=== PATIENT | female | born 1980 | race African-American/Black ===

== ENCOUNTER 2022-06-27 11:04 | Emergency (ER) | payer BC ==
[2022-06-27 12:15] LABS: Absolute Lymphocytes (CBC) 1.3 K/uL (0.7-4.9); Lymphocytes % 25.9 % (15.3-44.8); MCV 84.6 fL (80-100); MPV 8.4 fL (7.6-11.3); RBC Red Blood Cell Count 4.01 M/uL (3.86-4.86)
[2022-06-27 12:28] LABS: Potassium 3.5 mmol/L (3.5-5.1); Troponin High Sensitivity 3.6 pg/mL (<58.9)
--- NOTE | 2022-06-27 12:46 | RAD REPORT ---
EXAM DESCRIPTION: RAD - Chest Single View - 06/27/2022 12:31 pm CLINICAL HISTORY: CHEST PAIN Chest pain. COMPARISON: No comparisons FINDINGS: Portable technique limits examination quality. The lungs are grossly clear. The heart is normal in size. No displaced fractures. IMPRESSION: No acute intrathoracic process suspected.
--- NOTE | 2022-06-27 13:34 | EDPHYS ---
Physician Documentation [facility] Name: Barrett Alexandre Age: 41 yrs Sex: Female : 1980 Arrival Date: 06/27/2022 Time: 11:06 Bed 13 Private MD: ED Physician Sebastien Kauffman HPI: 06/27 19:52 This 41 yrs old Black Female presents to ER via EMS with complaints of chest pain. ms3 19:52 41-year-old female presents via EMS for substernal chest pain that has been ongoing for ms3 1 year. EMS states patient's blood pressure was 122/70 after administering aspirin and nitroglycerin. Patient states her pain is a 5/10 described as squeezing. Patient denies nausea, vomiting, fevers, chills. Patient denies alleviating or inciting factors.. 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 - Social history:: Smoking status: unknown. ROS: 19:52 Constitutional: Negative for fever, and chills. Neck: Negative for injury, pain, and ms3 swelling. 19:52 Respiratory: Negative for shortness of breath, cough, wheezing, and pleuritic chest pain, Abdomen/GI: Negative for abdominal pain, nausea, vomiting, diarrhea, and constipation, MS/Extremity: Negative for injury and deformity, Skin: Negative for injury, rash, and discoloration. 19:52 Cardiovascular: Positive for chest pain. 19:52 All other systems are negative. Exam: 19:52 Constitutional: This is a well developed, well nourished patient who is awake, alert, ms3 and in no acute distress. Head/Face: Normocephalic, atraumatic. Neck: Trachea midline, no cervical lymphadenopathy. Supple, full range of motion without nuchal rigidity, or vertebral point tenderness. No Meningismus. Chest/axilla: Normal chest wall appearance and motion. Nontender with no deformity. Cardiovascular: Regular rate and rhythm with a normal S1 and S2. No gallops, murmurs, or rubs. Normal PMI, no JVD. No pulse deficits. Respiratory: Lungs have equal breath sounds bilaterally, clear to auscultation and percussion. No rales, rhonchi or wheezes noted. No increased work of breathing, no retractions or nasal flaring. Abdomen/GI: Soft, non-tender, with normal bowel sounds. No distension or tympany. No guarding or rebound. No evidence of tenderness throughout. Back: No spinal tenderness. No costovertebral tenderness. Full range of motion. Skin: Warm, dry with normal turgor. Normal color with no rashes, no lesions, and no evidence of cellulitis. MS/ Extremity: Pulses equal, no cyanosis. Neurovascular intact. Full, normal range of motion. Neuro: Awake and alert, GCS 15, oriented to person, place, time, and situation. Cranial nerves II-XII grossly intact. Motor strength 5/5 in all extremities. Sensory grossly intact. Cerebellar exam normal. Normal gait. Psych: Awake, alert, with orientation to person, place and time. Behavior, mood, and affect are within normal limits. Vital Signs: 11:18 BP 124 / 82; Pulse 70; Resp 16 S; Temp 99.1(O); Pulse Ox 100% on R/A; Weight 95.71 kg jd3 (R); Height 5 ft. 4 in. (162.56 cm) (R); Pain 1/10; 12:57 BP 121 / 73; Pulse 65; Resp 15; Pulse Ox 100% on R/A; jd3 13:46 BP 108 / 72; Pulse 63; Resp 16; Pulse Ox 100% on R/A; jd3 11:18 Body Mass Index 36.22 (95.71 kg, 162.56 cm) jd3 MDM: 11:08 Patient medically screened. ms3 13:35 Differential diagnosis: abnormal EKG, acute myocardial infarction, acute pericarditis, ms3 coronary artery disease chest wall pain. HEART Score: History: Slightly Suspicious (0), ECG: Normal (0), Age: < or = 45 years (0), Risk Factors: 1 or 2 risk factors (1), Troponin: < or = 1 x Normal Limit (0), Total Score = 1. The patient was not given aspirin in the Emergency Department. Administered by EMS. Data reviewed: vital signs, nurses notes, lab test result(s), EKG, radiologic studies, and as a result, I will discharge patient. Counseling: I had a detailed discussion with the patient and/or guardian regarding: the historical points, exam findings, and any diagnostic results supporting the discharge/admit diagnosis, lab results, radiology results, the need for outpatient follow up, to return to the emergency department if symptoms worsen or persist or if there are any questions or concerns that arise at home. Special discussion: Based on the patient's history, exam, and Dx evaluation, there is no indication for emergent intervention or inpatient Tx. It is understood by the patient/guardian that if the Sx's persist or worsen they need to return immediately for re-evaluation. ED course: On reevaluation patient is alert and oriented x4, in no apparent distress, nontoxic, speaking full sentences, pain improved. Discussed labs, chest x-ray, EKG with patient. Patient to follow-up with [facility] cardiology within 48 hours. Patient understands and agrees with plan. All questions were answered. Return precautions discussed include worsening symptoms, or any other concerns.. 06/27 11:44 Order name: Basic Metabolic Panel; Complete Time: 12:33 ms3 06/27 11:44 Order name: CBC with Diff; Complete Time: 12:33 ms3 06/27 11:44 Order name: Troponin HS; Complete Time: 12:33 ms3 06/27 11:44 Order name: XRAY Chest (1 view); Complete Time: 12:53 ms3 06/27 11:44 Order name: EKG; Complete Time: 11:45 ms3 06/27 11:44 Order name: Cardiac monitoring; Complete Time: 11:50 ms3 06/27 11:44 Order name: EKG - Nurse/Tech; Complete Time: 11:50 ms3 06/27 11:44 Order name: IV Saline Lock; Complete Time: 11:50 ms3 06/27 11:44 Order name: Labs collected and sent; Complete Time: 11:50 ms3 06/27 11:44 Order name: O2 Per Protocol; Complete Time: 11:50 ms3 06/27 11:44 Order name: O2 Sat Monitoring; Complete Time: 11:50 ms3 Administered Medications: No medications were administered Disposition Summary: 08/31/22 13:34 Discharge Ordered Location: Home ms3 Condition: Stable ms3 Diagnosis - Chest pain, unspecified ms3 - Essential (primary) hypertension ms3 Followup: ms3 - With: Private Physician - When: 48 Hours - Reason: Re-evaluation by your physician Discharge Instructions: - Discharge Summary Sheet ms3 - Nonspecific Chest Pain, Adult ms3 Forms: - Medication Reconciliation Form ms3 - Thank You Letter ms3 - Antibiotic Education ms3 - Prescription Opioid Use ms3 Prescriptions: - Pepcid 20 mg Oral Tablet - take 1 tablet by ORAL route every 12 hours for 5 days; 10 tablet; Refills: 0, ms3 Product Selection Permitted Signatures: Dispatcher [employer] Dhaval Reaves RN RN jd3 Sebastien Kauffman DO DO ms3
--- NOTE | 2022-06-27 13:34 | ER ---
Nurse's Notes [facility] Name: Barrett Alexandre Age: 41 yrs Sex: Female : 1980 Arrival Date: 06/27/2022 Time: 11:06 Bed 13 Private MD: Diagnosis: Chest pain, unspecified;Essential (primary) hypertension Presentation: 06/27 11:06 Chief complaint: EMS states: "pt is reporting episodic chest pain that has been going jd3 on for about 1 year. she reports she has these episodes about once a week. today the pain radiates to the jaw.". Coronavirus screen: At this time, the client does not indicate any symptoms associated with coronavirus-19. Ebola Screen: No symptoms or risks identified at this time. Initial Sepsis Screen: Does the patient meet any 2 criteria? No. Patient's initial sepsis screen is negative. Does the patient have a suspected source of infection? No. Patient's initial sepsis screen is negative. Risk Assessment: Do you want to hurt yourself or someone else? Patient reports no desire to harm self or others. Onset of symptoms was June 27, 2022. 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 - Social history:: Smoking status: unknown. Screenin:22 Abuse screen: Denies threats or abuse. Nutritional screening: No deficits noted. jd3 Tuberculosis screening: No symptoms or risk factors identified. Fall Risk IV access (20 points). Ambulatory Aid- None/Bed Rest/Nurse Assist (0 pts). Gait- Normal/Bed Rest/Wheelchair (0 pts) Mental Status- Oriented to own ability (0 pts). Total Casey Fall Scale indicates No Risk (0-24 pts). Assessment: 11:19 General: Appears in no apparent distress. comfortable, Behavior is calm, cooperative, jd3 appropriate for age, anxious. Pain: Complains of pain in chest Pain radiates to jaw Quality of pain is described as pressure, squeezing. Neuro: Huggins Agitation-Sedation Scale (RASS): 0 - Alert and Calm Level of Consciousness is awake, alert, obeys commands, Oriented to person, place, time, situation. Cardiovascular: Reports palpitations, Capillary refill < 3 seconds Patient's skin is warm and dry. Rhythm is regular. Respiratory: Airway is patent Respiratory effort is even, unlabored, Respiratory pattern is regular, symmetrical, Denies cough, shortness of breath. GI: No signs and/or symptoms were reported involving the gastrointestinal system. : No signs and/or symptoms were reported regarding the genitourinary system. EENT: No signs and/or symptoms were reported regarding the EENT system. Derm: Skin is intact, Skin is dry, Skin is normal, Skin temperature is warm. Musculoskeletal: Circulation, motion, and sensation intact. Range of motion: intact in all extremities. 12:57 Reassessment: Patient appears in no apparent distress at this time. No changes from [facility] previously documented assessment. Patient and/or family updated on plan of care and expected duration. Pain level reassessed. Patient is alert, oriented x 3, equal unlabored respirations, skin warm/dry/pink. 13:45 Reassessment: Patient appears in no apparent distress at this time. Patient and/or d3 family updated on plan of care and expected duration. Pain level reassessed. Patient is alert, oriented x 3, equal unlabored respirations, skin warm/dry/pink. Patient states feeling better. Vital Signs: 11:18 BP 124 / 82; Pulse 70; Resp 16 S; Temp 99.1(O); Pulse Ox 100% on R/A; Weight 95.71 kg jd3 (R); Height 5 ft. 4 in. (162.56 cm) (R); Pain 1/10; 12:57 BP 121 / 73; Pulse 65; Resp 15; Pulse Ox 100% on R/A; jd3 13:46 BP 108 / 72; Pulse 63; Resp 16; Pulse Ox 100% on R/A; jd3 11:18 Body Mass Index 36.22 (95.71 kg, 162.56 cm) [facility] ED Course: 11:06 Patient arrived in ED. jd3 11:08 Sebastien Kauffman DO is Attending Physician. ms3 11:08 Triage completed. jd3 11:09 Arm band placed on. jd3 11:18 Dhaval Barron, RN is Primary Nurse. jd3 11:22 Patient has correct armband on for positive identification. Placed in gown. Bed in low jd3 position. Call light in reach. Side rails up X 1. Adult w/ patient. Child being held by parent. Client placed on continuous cardiac and pulse oximetry monitoring. NIBP monitoring applied. Pulse ox on. NIBP on. 11:56 Maintain EMS IV. Dressing intact. Good blood return noted. Site clean \\T\\ dry. Gauge \\T\\ ginny 3 site: 20 G right AC. 12:33 XRAY Chest (1 view) In Process Unspecified. EDMS 13:45 No provider procedures requiring assistance completed. IV discontinued, intact, jd3 bleeding controlled, No redness/swelling at site. Pressure dressing applied. Administered Medications: No medications were administered Medication: 11:22 VIS not applicable for this client. jd3 Outcome: 13:34 Discharge ordered by MD. ms3 13:45 Discharged to home ambulatory, with family. jd3 13:45 Condition: stable 13:45 Discharge instructions given to patient, Instructed on discharge instructions, follow up and referral plans. medication usage, Demonstrated understanding of instructions, follow-up care, medications, Prescriptions given X 1. 13:48 Patient left the ED. jd3 Signatures: Dispatcher [employer] Dhaval Reaves, RN RN jSebastien Grimaldo DO DO ms3
[2022-06-27 14:30] VITALS: TEMP 99.1; O2SAT 100
[2022-06-27 14:49] VITALS: BP 108/72
--- NOTE | 2022-06-28 13:58 | EKG ---
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
== END 2022-06-27 13:48 | disposition home or self-care (01) ==
LOC: ER 11:04
DX: R07.89 Other chest pain (principal); I10 Essential (primary) hypertension
CPT/HCPCS: 36415; 71045; 80048; 84484; 85025; 93005